=== PATIENT | male | born 2000 | race Caucasian/White ===

== ENCOUNTER 2024-08-25 15:26 | Emergency (ER) | payer MEDICAID, SELFPAY ==
--- NOTE | ~2024-08-25 | XR_ITS ---
CLINICAL HISTORY: pain after weight lifting Four views of the left elbow. COMPARISON: None FINDINGS: No elbow joint effusion. Disruption of radiocapitellar alignment with proximal subluxation of the radial head onto the humerus. Chronic remodeling of the radial head. Proximal ulna appears intact. Well corticated ossifications present along the lateral humeral condyle. Distal humerus appears intact. IMPRESSION: 1. 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 Cross-sectional imaging would be helpful for further characterization. Recommend correlation with prior imaging if available. 2. Small well corticated ossifications present along the lateral humeral condyle likely representing sequela of remote injury. These do not appear acute. This document has been electronically signed by: Hugo Álvarez MD on 08/25/2024 16:38:29
[2024-08-25 15:30] VITALS: BP 125/74; PULSE 66; RESP 16; TEMP 36.3; O2SAT 96; BMI 36.3
--- NOTE | 2024-08-25 15:35 | ED_ITS ---
HPI - Extremity Problem General Chief complaint: Extremity Injury, Upper Stated complaint: left elbow pain Time Seen by Provider: 08/25/24 18:01 Source: patient, RN notes reviewed and old records reviewed Mode of arrival: ambulatory Limitations: no limitations History of Present Illness ED Provider: Robert ROJAS Narrative: 23-year-old male presents for evaluation of left elbow pain. Patient reports he noticed pain to his left elbow and decreased range of motion after weightlifting today. He was lifting approximately 35 lb dumbbells Patient reports when he was a child he had an elbow fracture requiring several surgeries He was unsure if he still has any metal plates or screws in his arm He reports that since having his x-ray he has been able to extend his elbow with full range of motion which he could not do after injuring it His pain is a 10/23 Related Data Allergies Allergy/AdvReac Type Severity Reaction Status Date / Time No Known Allergies Allergy Verified 08/25/24 15:32 [No Known Allergies*] Review of Systems Constitutional: Constitutional: Denies body ache(s), Denies chills, Denies fever(s) and Denies headache(s) Eyes: Eyes: Denies exophthalmos and Denies floaters ENT: Denies headache(s) Cardiovascular: Cardiovascular: Denies chest pain and Denies dyspnea Respiratory: Respiratory: Denies cough and Denies dyspnea Gastrointestinal: Gastrointestinal: Denies abdominal pain, Denies nausea and Denies vomiting Musculoskeletal: Musculoskeletal: Reports arthralgias, Reports joint swelling and Reports limited range of motion Neurologic: Denies headache(s) PMFSH Social History Social History Advance Directives: No Advance Directives Information Provided: No Do you have a plan to hurt others: No Plan Physical Exam Vital Signs: Vital Signs: Last Vital Signs Temp 98.8 F 08/25/24 18:19 Pulse 62 08/25/24 18:19 Resp 18 08/25/24 18:19 BP 119/68 08/25/24 18:19 Pulse Ox 98 08/25/24 18:19 O2 Del Method Room Air 08/25/24 18:19 BMI result Body Mass Index 36.3 Const: General: healthy appearing, comfortable, no acute distress, alert and awake Nutritional Appearance: well nourished Orientation/consciousness: patient oriented x3 HEENT: Head: Yes normocephalic and Yes atraumatic Eyes: Eyelids: Yes eyelids normal Conjunctivae: conjunctivae normal Sclerae: sclerae normal Corneas: corneas normal Pupils: Equal, round and reactive pupils present EOM: EOMs intact bilaterally Neck: Neck: Yes full ROM Resp: Effort & Inspection: normal respiratory effort, able to speak in complete sentences and not labored Skin: General skin exam: elasticity normal Neuro: General: patient oriented x3 Cranial nerves: Yes Equal, round and reactive pupils present and Yes Bilaterally intact EOM present Cognition (Neuro): normal cognition Extrem: Other: The patient has a surgical scar over the lateral aspect of the left elbow. No significant ecchymosis, erythema or acute wounds. The patient has full range of motion with flexion, extension pronation and supination of the left elbow. Course Course Course Narrative: This is a rapid medical exam performed by Willard Burnette NP: Additional HPI, ROS, PE not included below will be deferred to primary provider. Patient is a 23-year-old male presenting to the emergency department with complaint of left elbow pain after weightlifting prior to arrival. States he has minimal pain at rest but pain increases with extension of elbow. Plan: X-ray Medical Decision Making Medical Decision Making MDM Narrative: 23-year-old male presents for evaluation of acute on chronic left elbow pain. His x-ray shows multiple abnormalities likely related to his fracture as a child. His pain has resolved and he did have some decreased range of motion on arrival which resolved prior to my evaluation during x-ray imaging. 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 Given that he is currently asymptomatic, I advised him to avoid weightlifting until he follow up with Orthopedics. He may require some further advanced imaging as an outpatient. There was no evidence of infection or acute injury and he will be discharged Differential Diagnosis Differential Diagnoses: The differential diagnosis associated with the presentation includes Chronic radial head subluxation Muscle strain Tendonitis Bursitis Epicondylitis Independent Interpretation I performed an independent interpretation of an: Plain X-Ray Radiology Impression Discussion of test interpretation with radiology: I have reviewed the radiologist's reading. Radiologist Impression: FINDINGS: No elbow joint effusion. Disruption of radiocapitellar alignment with proximal subluxation of the radial head onto the humerus. Chronic remodeling of the radial head. Proximal ulna appears intact. Well corticated ossifications present along the lateral humeral condyle. Distal humerus appears intact. IMPRESSION: 1. 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 Cross-sectional imaging would be helpful for further characterization. Recommend correlation with prior imaging if available. 2. Small well corticated ossifications present along the lateral humeral condyle likely representing sequela of remote injury. These do not appear acute. This document has been electronically signed by: Hugo Álvarez MD on 08/25/2024 16:38:29 Discharge Plan Discharge Clinical Impression: Left elbow pain Patient Disposition: Home, Self-Care Instructions: Arthralgia (ED) Additional Instructions: You have a chronic deformity to your left elbow. I recommend that you avoid lifting heavy weights until you see orthopedics You may use ibuprofen/Tylenol for pain Follow-up with orthopedics at the number provided Referrals: Sachin Baires MD [Physician] - (chronic left elbow deformity. Had surgery as a child, possible impingement syndrome) Interventions: ED Discharge Assessment Last Done: 08/25/24 18:19 Discharge Date/Time: 08/25/24 18:20 Print Language: [place]
[2024-08-25 18:19] VITALS: BP 119/68; BP 125/74; PULSE 62; PULSE 66; RESP 16; RESP 18; TEMP 36.3; TEMP 37.1; O2SAT 96; O2SAT 98
== END 2024-08-25 18:20 | disposition home or self-care (01) ==
PROVIDERS: Emergency Provider Emergency Medicine Emergency Medical Services
DX: M25.522 Pain in left elbow (principal)
CPT/HCPCS: 73080; 99282; 99283

== ENCOUNTER → 2024-08-25 15:34 | Outpatient (BNV) | payer MEDICAID, SELFPAY | PROVIDERS: Visit Provider Radiology Diagnostic Radiology | DX: M24.422 Recurrent dislocation, left elbow (principal) | CPT/HCPCS: 73080 ==